=== PATIENT | female | born 1985 | race Caucasian/White ===

== ENCOUNTER 2025-08-29 17:43 | Emergency (ER) | payer OTHER, SELFPAY ==
--- NOTE | ~2025-08-29 | XR_ITS ---
CLINICAL HISTORY: trauma 2 view left knee Comparison: None provided Findings: Bones intact. No dislocations. No significant arthritic change or erosions. No joint effusion. No radiopaque foreign body. IMPRESSION: 1. No acute fracture. This document has been electronically signed by: Yvette Godoy MD on 08/29/2025 19:28:05
--- NOTE | ~2025-08-29 | XR_ITS ---
CLINICAL HISTORY: trauma 2 view left tibia-fibula Comparison: None provided Findings No fractures or dislocations. No joint effusion. No significant arthritic change. No radiopaque foreign body. IMPRESSION: 1. No acute fracture. This document has been electronically signed by: Yvette Godoy MD on 08/29/2025 19:28:54
[2025-08-29 17:53] VITALS: BP 132/86; BP 133/79; PULSE 80; PULSE 98; RESP 19; TEMP 36.5; O2SAT 96; O2SAT 98; BMI 29.1
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
--- OUTSIDE RECORDS SUMMARY | 2025-08-29 19:07 | XMS_ITS | Clinical Summary ---
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 20 tablet 4 Active Additional Information Patient not taking.Reported on 01/04/2025 Sodium Fluoride 5000 PPM 1.1 % gel USE PEA SIZE AMOUNT AND BRUSH TEETH THREE TIMES A DAY 4 Active Active Problems Problem Noted Date Diagnosed Date Dental calculus 07/19/2024 Dental plaque 07/19/2024 Social History Tobacco Use Types Packs/Day Years Used Date Smoking Tobacco: Never Smokeless Tobacco: Never Tobacco Cessation:Counseling Given: Not Answered Alcohol Use Standard Drinks/Week Comments Never 0 (1 standard drink = 0.6 oz pur e alcohol) Comments Unknown Sex and Gender Information Value Date Recorded Sex Assigned at Female 12/31/2022 10:59 AM EST Legal Sex Female 10:46 AM EST Gender Identity Female 12/31/2022 10:59 AM EST Sexual Orientation Straight 12/31/2022 11 :00 AM EST Last Filed Vital Signs Vital Sign Reading Time Taken Comments Blood Pressure 122/80 02/06/2025 8:52 AM EDT Pulse 60 07/19/2024 9:31 AM EDT Temperature - - Respiratory Rate - - Oxygen Saturation - - Inhaled Oxygen Concentration - - Weight - - Height - - Body Mass Index - - Plan of Treatment Health Maintenance Due Date Last Done Comments Depression Screening 1986 HIV Screening 1986 SDOH Screening 1986 Disability Screening 1986 Alcohol/Substance Use Screening 1998 Family Planning (PISQ) 2001 HPV Vaccines (1 - 3-dose series) 2001 Hepatitis C Screening 2004 Hepatitis B Vaccines (1 of 3 - 19+ 3-dose series) 2005 Pap Smear 2007 Cervical Cancer Screening 2016 HPV/Cotest 2016 Dental Oral Exam 07/05/2025 01/04/2025, , 01/07/2023 Dental Prophylaxis 07/05/2025 01/04/2025, 0 07/19/2024, 01/29/2023 Dental X-Ray: Bitewings 07/20/2025 07/19/2024, 01/07 COVID-19 Vaccine ( season) 2025 Influenza Vaccine (#1) 2025 8, 09/14/2012, 09/14/2012, Additional history exists Dental X-Ray: Full Mouth 01/08/2026 01/07/2023 Tobacco Screening 02/06/2026 02/06/2025 DTaP/Tdap/Td Vaccines (4 - Td or Tdap) 08/22/2031 08/22/2021, 08/22/2021, 06/02/2011 Zoster Vaccines (1 of 2) 2036 RSV Patients and Patients Aged 60 years or older (1 - 1-dose 75+ series) 2061 HIB Vaccines Aged Out No longer eligi ble based on patient's age to complete this topic Hepatitis A Vaccines Aged Out No long er eligible based on patient's age to complete this topic IPV Vaccines Aged Out No longer eligi ble based on patient's age to complete this topic Meningococcal B Vaccine Aged Out No l onger eligible based on patient's age to complete this topic Meningococcal Vaccine Aged Out No shoaib lin eligible based on patient's age to complete this topic Pneumococcal Vaccine: Pediatrics (0 to 5 Years) and At-Risk Patients (6 to 49) Years Aged Out No longer eligible based on patient's age to complete this topic RSV under 20 months Aged Out No longe r eligible based on patient's age to complete this topic Rotavirus Vaccines Aged Out No longer eligible based on patient's age to complete this topic Procedures Procedure Name Priority Date/Time Associated Diagnosis Comments PROPHYLAXIS - ADULT Routine 01/04/2025 9 :00 AM EST Dental caries PERIODIC ORAL EVALUATION - ESTABLISHED PATIENT Routine 01/04/2025 9:00 AM EST Dental caries BITEWINGS - 4 RADIOGRAPHIC IMAGES Routine 07/19/2024 9:30 AM EDT INTRAORAL - COMPLETE SERIES OF RADIOGRAPHIC IMAGES Routine 01/07/2023 9:30 AM EST from Last 3 Months or Most Recently Relevant to Health Maintenance Insurance [facility] MEDICAID STAND ADULT
--- OUTSIDE RECORDS SUMMARY | 2025-08-29 19:07 | XMS_ITS | Encounter Summary ---
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 Phone Unavailable Primary Care Provider Unavailabl e Reason for Visit * Reason Onset Date Comments returning all to schedule appt 02/14/2025 Encounter Details Date Type Department Care Team (Late st Contact Info) Description 02/14/2025 Telephone [facility] [address] [place] [address] [place] Cano, DMD [address] [place] [address] returning all to schedule appt Social History Tobacco Use Types Packs/Day Years Used Date Smoking Tobacco: Never Smokeless Tobacco: Never Alcohol Use Standard Drinks/Week Comments Never 0 (1 standard drink = 0.6 oz pur e alcohol) Comments Unknown Sex and Gender Information Value Date Recorded Sex Assigned at Female 12/31/2022 10:59 AM EST Legal Sex Female 10:46 AM EST Gender Identity Female 12/31/2022 10:59 AM EST Sexual Orientation Straight 12/31/2022 11 :00 AM EST documented as of this encounter Miscellaneous Notes * Telephone Encounter - Tierney Latham - 02/14/2025 1:06 PM EDT Patient returned call placed yesterday to schedule an appt. Please return call to patient DR documented in this encounter Plan of Treatment Not on file documented as of this encounter Visit Diagnoses Not on filedocumented in this encounter
[2025-08-29] MEDS: Lidocaine HCl 1 % 20 ML VIAL 10 ML INFILTRATI (19:57)
[2025-08-29 19:59] VITALS: BP 115/62; PULSE 70; RESP 16; O2SAT 99
[2025-08-29 20:50] VITALS: BP 105/72; RESP 20
[2025-08-29] MEDS: Diphth,Pertus(ACell),Tet Adult 0.5 ML SYRINGE IM (21:32)
[2025-08-29 22:26] VITALS: BP 105/72; PULSE 70; RESP 20; TEMP 36.5; O2SAT 99
== END 2025-08-29 22:38 | disposition home or self-care (01) ==
PROVIDERS: Emergency Provider Student in an Organized Health Care Education/Training Program
DX: S81.012A Laceration without foreign body, left knee, initial encounter (principal); Z23 Encounter for immunization; W05.1XXA Fall from non-moving nonmotorized scooter, initial encounter; Y93.9 Activity, unspecified; Y92.9 Unspecified place or not applicable; Y99.9 Unspecified external cause status; Z88.0 Allergy status to penicillin
CPT/HCPCS: 12002; 73560; 73590; 90471; 90715; 99284; J2003

== ENCOUNTER → 2025-08-29 18:40 | Outpatient (BNV) | payer OTHER, SELFPAY | PROVIDERS: Emergency Provider Student in an Organized Health Care Education/Training Program; Visit Provider Student in an Organized Health Care Education/Training Program | DX: S81.012A Laceration without foreign body, left knee, initial encounter (principal); V00.141A Fall from scooter (nonmotorized), initial encounter | CPT/HCPCS: 73560; 73590 ==